=== PATIENT | male | born 1985 | race Caucasian/White ===

== ENCOUNTER 2018-10-27 14:15 | Observation (INO) | payer OTHER ==
[~2018-10-27 14:15] MED LIST: CEFAZOLIN 1 GM INJ; DESFLURANE 15 MIN; LIDOCAINE 2% (SDV) 5 ML INJ; PROPOFOL 200 MG INJ; ROCURONIUM 50 MG INJ; SUCCINYLCHOLINE CHLORIDE 100 MG/5 ML SYG IV
[2018-10-27] MEDS: LACTATED RINGER'S 1,000 ML IV (15:00)
[2018-10-27] MEDS: CEFAZOLIN 1 GM/50 ML (PMX) 50 ML IVPB (15:00)
[2018-10-27] MEDS ORDERED: METOCLOPRAMIDE 10 MG INJ IV (16:00)
[2018-10-27] MEDS ORDERED: HYDROmorphONE 1 MG/5 ML IV SYRINGE IV (16:00)
[2018-10-27] MEDS ORDERED: FENTAnyl 50 MCG/ML VIAL IV ×2 (16:00)
[2018-10-27] MEDS ORDERED: DIPHENHYDRAMINE 50 MG INJ IV (16:00)
[2018-10-27] MEDS ORDERED: ALBUTEROL 0.083% (NEB) 2.5 MG/3 ML AMP HHN (16:00)
[2018-10-27] MEDS ORDERED: FENTAnyl 50 MCG/ML VIAL (16:17)
[2018-10-27] MEDS ORDERED: MIDAZOLAM 1 MG/ML 2 ML INJ (16:17)
[2018-10-27] MEDS ORDERED: ROPIVACAINE 0.5 % 30 ML VIAL (16:17)
[2018-10-27] MEDS: POLYMYXIN/BACITRACIN 1L IRRIG (16:57)
[2018-10-27] MEDS: MEPERIDINE 25 MG INJ IV (19:43)
[2018-10-27] MEDS: HYDROmorphONE 1 MG/5 ML IV SYRINGE IV ×4 (19:44→20:37)
[2018-10-27] MEDS: ONDANSETRON 4 MG INJ IV (19:48)
[2018-10-27] MEDS: FENTAnyl 50 MCG/ML VIAL IV ×2 (19:51→19:57)
[2018-10-27] MEDS: KETOROLAC 30 MG INJ IV (20:48)
[2018-10-27] MEDS: SOD CHLORIDE 0.9% 1,000 ML IV (21:44)
[2018-10-28] MEDS: CEFAZOLIN 1 GM/50 ML (PMX) 50 ML IVPB ×2 (01:00→09:49)
[2018-10-28] MEDS: HYDROCODONE/APAP (5/325) TAB PO ×3 (02:45→14:24)
[2018-10-28] MEDS: KETOROLAC 30 MG INJ IV ×2 (02:45→10:40)
[2018-10-28] MEDS: SOD CHLORIDE 0.9% 1,000 ML IV ×2 (05:41→06:57)
== END 2018-10-28 17:00 | disposition home or self-care (01) ==
LOC: SDS 14:15 → MS1 21:00 → SDS 20:27 → MS1 20:27
DX: S82.241A Displaced spiral fracture of shaft of right tibia, initial encounter for closed fracture (principal); S82.831A Other fracture of upper and lower end of right fibula, initial encounter for closed fracture; S82.391A Other fracture of lower end of right tibia, initial encounter for closed fracture; X58.XXXA Exposure to other specified factors, initial encounter
CPT/HCPCS: 27759; 73590; 97116; 97161; 97530